=== PATIENT | female | born 1980 | race Caucasian/White ===

== ENCOUNTER 2022-01-09 15:21 | Emergency (ER) | payer MEDICAID ==
[~2022-01-09] VITALS: Ht 170.2 cm; Wt 62.0 kg
[2022-01-09] MEDS ORDERED: ONDANSETRON HCL 4MG/2ML INJ IV STA (15:53)
[2022-01-09] MEDS ORDERED: SODIUM CHLORIDE 0.9% 1,000 ML IV ONE ×2 (16:00→17:30)
[2022-01-09] MEDS ORDERED: MECLIZINE 25MG TABLET PO ONE (16:15)
[2022-01-09 16:18] LABS: BASOPHILS % 0.9 % (0.0-2.0); EOSINOPHILS % 1.9 % (0.0-5.0); HEMATOCRIT. 32.8 % (36.0-48.0); HEMOGLOBIN. 10.7 g/dL (12.0-16.0); MEAN CORPUSCULAR VOLUME 79.7 fL (81.0-99.0); MEAN PLATELET VOLUME 9.1 fl (7.4-10.4); MONOCYTES % 9.9 % (2.0-8.0); NEUTROPHILS % 49.3 % (40.0-76.0); PLATELET 194 x1000/uL (130-400); RED BLOOD CELL COUNT 4.11 mill/uL (4.2-5.4); RED CELL DISTRIBUTION WIDTH 19.4 % (11.6-14.6)
[2022-01-09 16:25] LABS: CHLORIDE 101 mEq/L (98-107)
[2022-01-09 16:31] LABS: CLARITY URINE CLOUDY (CLEAR); COLOR URINE YELLOW (YELLOW); KETONES URINE NEGATIVE (NEGATIVE); LEUKOCYTE ESTERASE URINE NEGATIVE (NEGATIVE); NITRITE URINE POSITIVE (NEGATIVE); OCCULT BLOOD URINE 1+ (NEGATIVE); PH URINE 5.5 (4.5-8.0); PROTEIN URINE TRACE (NEGATIVE); SPECIFIC GRAVITY URINE 1.018 (1.005-1.030); UROBILINOGEN URINE 0.2 E.U./dL (0.2-1.0)
[2022-01-09 16:35] LABS: ETHANOL BLOOD < 10 mg/dL
[2022-01-09 16:39] LABS: HCG SCREEN NEGATIVE
[2022-01-09 16:44] LABS: *AMPHETAMINES SCREEN URINE NEGATIVE (NEGATIVE); *BARBITURATES SCREEN URINE NEGATIVE (NEGATIVE); *BENZODIAZEPINES SCREEN URINE NEGATIVE (NEGATIVE); *COCAINE SCREEN URINE NEGATIVE (NEGATIVE); CANNABINOID URINE SCREEN NEGATIVE (NEGATIVE); METHADONE URINE SCREEN NEGATIVE (NEGATIVE); OPIATES URINE SCREEN NEGATIVE (NEGATIVE); PHENCYCLIDINE URINE SCREEN NEGATIVE (NEGATIVE)
[2022-01-09] MEDS ORDERED: CEFTRIAXONE 1 G PREMIX 50 ML IV ONE (16:45)
[2022-01-09] MEDS ORDERED: INSULIN REGULAR (HUMULIN R) 300UNITS/3ML VIAL IV ONE (17:30)
[2022-01-09 18:23] VITALS: BP 171/93
[2022-01-09] MEDS ORDERED: CEPH500T MT (18:51)
== END 2022-01-09 19:26 | disposition home or self-care (01) ==
LOC: ER 17:16
DX: N39.0 Urinary tract infection, site not specified (principal); E86.0 Dehydration; E11.9 Type 2 diabetes mellitus without complications; I10 Essential (primary) hypertension
CPT/HCPCS: 36415; 70450; 71045; 80053; 80305; 80320; 81003; 82962; 83690; 83880; 84484; 84703; 85025; 93005; 96361; 96365; 96375; 99285; J0696; J1815; J2405; J7030; J8597; G0480

== ENCOUNTER 2023-07-05 12:55 | Emergency (ER) | payer MEDICAID ==
[~2023-07-05 12:55] MED LIST: CEPH500T MT
[2023-07-05 13:05] VITALS: PULSE 77; RESP 16
== END 2023-07-05 14:16 | disposition left against medical advice (07) ==
LOC: ER 12:55
DX: M79.602 Pain in left arm (principal); M79.672 Pain in left foot; M79.671 Pain in right foot; Z53.21 Procedure and treatment not carried out due to patient leaving prior to being seen by health care provider

== ENCOUNTER 2023-07-05 14:39 | Emergency (ER) | payer MEDICAID ==
[~2023-07-05] VITALS: Ht 165.1 cm; Wt 51.7 kg
[2023-07-05 15:05] VITALS: BP 108/64; PULSE 92; RESP 16; TEMP 98.5; O2SAT 99
== END 2023-07-05 19:05 | disposition left against medical advice (07) ==
LOC: ER 14:39
DX: R20.0 Anesthesia of skin (principal); Z53.21 Procedure and treatment not carried out due to patient leaving prior to being seen by health care provider
CPT/HCPCS: 99281

== ENCOUNTER 2023-07-06 20:11 | Emergency (ER) | payer MEDICAID, OTHER ==
[~2023-07-06] VITALS: Ht 165.1 cm; Wt 49.0 kg
[2023-07-06 20:38] VITALS: O2SAT 100
[2023-07-06 21:21] LABS: BASOPHILS % 0.9 % (0.0-2.0); EOSINOPHILS % 2.2 % (0.0-5.0); HEMATOCRIT. 30.6 % (36.0-48.0); HEMOGLOBIN. 8.6 g/dL (12.0-16.0); MEAN CORPUSCULAR HEMOGLOBIN 18.8 pg (28.0-32.0); MEAN CORPUSCULAR HGB CONC 27.9 g/dL (31.0-37.0); MEAN CORPUSCULAR VOLUME 67.3 fL (81.0-99.0); MEAN PLATELET VOLUME 9.1 fl (7.4-10.4); NEUTROPHILS % 66.9 % (40.0-76.0); PLATELET 392 x1000/uL (130-400); RED BLOOD CELL COUNT 4.55 mill/uL (4.2-5.4); RED CELL DISTRIBUTION WIDTH 16.8 % (11.6-14.6); WHITE BLOOD COUNT 8.9 x1000/uL (4.5-11.0)
[2023-07-06 21:27] LABS: ADD RBC MORPHOLOGY YES; DIFFERENTIAL COMMENT 1
[2023-07-06 21:35] LABS: ALANINE AMINOTRANSFERASE 23 IU/L (10-49); ALBUMIN 3.9 g/dL (3.2-4.8); ASPARTATE AMINOTRANSFERASE 17 IU/L (<34); BILIRUBIN TOTAL 0.4 mg/dL (0.1-1.0); CALCIUM 8.5 mg/dL (8.7-10.4); CARBON DIOXIDE 27 mEq/L (21-32); CHLORIDE 99 mEq/L (98-107); POTASSIUM 3.7 mEq/L (3.5-5.1); PROTEIN TOTAL 7.1 g/dL (6.0-8.3); SODIUM 130 mEq/L (136-145); UREA NITROGEN BLOOD 23 mg/dL (9-23)
[2023-07-06 21:42] LABS: GLUCOSE 560 mg/dL (70-105)
[2023-07-06 21:51] LABS: GIANT PLATELETS 1+; HYPOCHROMASIA 1+; PLATELET ESTIMATE SLIGHTLY INCREASED
[2023-07-06 21:52] LABS: ANISOCYTOSIS 1+; MICROCYTOSIS 1+
[2023-07-07] MEDS: SODIUM CHLORIDE 0.9% 1,000 ML IV ONE (01:08)
[2023-07-07] MEDS: SODIUM CHLORIDE 0.9% 500 ML IV ONE (01:08)
[2023-07-07 01:39] LABS: TROPONIN I HIGH SENSITIVITY < 4 ng/L (3.0-34)
[2023-07-07] MEDS ORDERED: METF-414 MT (04:28)
[2023-07-07 06:12] VITALS: BP 121/70; PULSE 72; RESP 18; TEMP 98.3
== END 2023-07-07 06:16 | disposition home or self-care (01) ==
LOC: ER 20:11
DX: S90.821A Blister (nonthermal), right foot, initial encounter (principal); S90.822A Blister (nonthermal), left foot, initial encounter; E11.65 Type 2 diabetes mellitus with hyperglycemia; R55 Syncope and collapse; Z90.49 Acquired absence of other specified parts of digestive tract; Z98.890 Other specified postprocedural states
CPT/HCPCS: 36415; 71045; 80053; 81025; 82962; 84484; 85025; 93005; 96360; 96361; 99285

== ENCOUNTER 2023-07-14 20:56 | Emergency (ER) | payer OTHER ==
[~2023-07-14] VITALS: Ht 165.1 cm; Wt 52.0 kg
[~2023-07-14 20:56] MED LIST changes: +METF-414 MT
[2023-07-14 22:43] VITALS: BP 132/71; PULSE 118; RESP 15; TEMP 98.2; O2SAT 99
[2023-07-15] MEDS ORDERED: MUPI15CR11 TP (00:39)
[2023-07-15] MEDS ORDERED: CEPH500C2 MT (00:39)
== END 2023-07-15 01:30 | disposition home or self-care (01) ==
LOC: ER 20:56
DX: L03.116 Cellulitis of left lower limb (principal); R60.9 Edema, unspecified; L97.521 Non-pressure chronic ulcer of other part of left foot limited to breakdown of skin; D64.9 Anemia, unspecified; E11.9 Type 2 diabetes mellitus without complications; Z98.890 Other specified postprocedural states; Z90.49 Acquired absence of other specified parts of digestive tract
CPT/HCPCS: 99281; Z7610